=== PATIENT | female | born 1950 | race Caucasian/White ===

== ENCOUNTER → 2017-05-05 | Outpatient (CLI) | payer MEDICARE, BC | LOC: MC.RAD 15:03 | DX: Z12.31 Encounter for screening mammogram for malignant neoplasm of breast (principal) ==

== ENCOUNTER → 2018-06-15 | Outpatient (CLI) | payer MEDICARE, BC | LOC: MC.RAD 08:51 | DX: Z12.31 Encounter for screening mammogram for malignant neoplasm of breast (principal) ==

== ENCOUNTER 2018-11-09 15:28 | Outpatient (CLI) | payer MEDICARE, BC ==
[~2018-11-09] VITALS: Ht 167.6 cm; Wt 71.8 kg
[2018-11-09 15:45] VITALS: BP 137/79; PULSE 62; TEMP 97.9
== END 2018-11-09 16:58 | disposition home or self-care (01) ==
LOC: EUO 15:28
DX: M81.0 Age-related osteoporosis without current pathological fracture (principal)
CPT/HCPCS: J3489

== ENCOUNTER → 2019-07-03 | Outpatient (CLI) | payer MEDICARE, BC | LOC: MC.RAD 11:43 | DX: Z12.31 Encounter for screening mammogram for malignant neoplasm of breast (principal) ==

== ENCOUNTER 2019-11-01 10:15 | Outpatient (CLI) | payer MEDICARE, BC ==
[~2019-11-01] VITALS: Ht 157.5 cm; Wt 73.8 kg
[2019-11-01 10:43] VITALS: BP 135/77; PULSE 67; TEMP 98.6
== END 2019-11-01 16:51 | disposition home or self-care (01) ==
LOC: EUO 10:15
DX: M81.0 Age-related osteoporosis without current pathological fracture (principal); Z79.899 Other long term (current) drug therapy
CPT/HCPCS: J3489

== ENCOUNTER 2020-11-02 14:51 | Outpatient (CLI) | payer MEDICARE, BC ==
[~2020-11-02] VITALS: Ht 157.5 cm; Wt 74.5 kg
[2020-11-02 15:14] VITALS: BP 130/81; PULSE 68; TEMP 98.8
== END 2020-11-02 15:30 | disposition home or self-care (01) ==
LOC: EUO 14:51
DX: M81.0 Age-related osteoporosis without current pathological fracture (principal)
CPT/HCPCS: J3489

== ENCOUNTER → 2021-08-13 | Outpatient (CLI) | payer MEDICARE, BC | LOC: MC.RAD 11:23 | DX: Z12.31 Encounter for screening mammogram for malignant neoplasm of breast (principal) ==

== ENCOUNTER 2021-11-04 13:24 | Outpatient (CLI) | payer MEDICARE, BC ==
[~2021-11-04] VITALS: Ht 157.5 cm; Wt 73.5 kg
[2021-11-04 13:57] VITALS: BP 119/76; PULSE 43; TEMP 97.7
[2021-11-04] MEDS ORDERED: SYNTHROID0.05 MG/TA PO (14:24)
== END 2021-11-04 14:26 ==
LOC: EUO 13:24
DX: M81.0 Age-related osteoporosis without current pathological fracture (principal)
CPT/HCPCS: J3489

== ENCOUNTER → 2023-10-26 | Outpatient (CLI) | payer MEDICARE, BC ==
[~2023-10-26] MED LIST: CALCIUM 600MG+D1 TAB PO; RECLAST5 MG/100 M IV; SYNTHROID0.05 MG/TA PO
== END ==
LOC: MC.RAD 09:48
DX: Z12.31 Encounter for screening mammogram for malignant neoplasm of breast (principal)